=== PATIENT | male | born 1980 | race Hispanic/Latino ===

== ENCOUNTER 2021-02-26 08:58 | Emergency (ER) | payer OTHER ==
[2021-02-26 09:17] VITALS: BP 150/98
[2021-02-26] MEDS ORDERED: TETANUS,DIPHTHERIA TOXOID ADULT 0.5 ML INJ IM NR (09:21)
[2021-02-26] MEDS ORDERED: LIDOCAINE (1%) 10 MG/1 ML VIAL 20 ML MDV INFILTRATI NR (09:21)
[2021-02-26] MEDS ORDERED: ONDANSETRON 4 MG ODT TAB PO ONE (09:35)
[2021-02-26] MEDS ORDERED: HYDROcodone/Acetaminophen 7.5-325MG-15ML ORAL LIQD PO ONE (09:35)
--- NOTE | 2021-02-26 09:59 | XRay Report ---
XR hand 3+V LT INDICATION: INJURY. COMPARISON: No relevant prior imaging study available. FINDINGS: Best seen on the lateral view, there is an curvilinear density volar to the tuft of the distal phalan x of the ring finger. Surrounding soft tissue swelling is noted. No additional fractures are identified. No radiodense foreign bodies are identified. IMPRESSION: 1. Acute injury to the distal left ring finger, curvilinear density along the volar aspect of the dis scottie tuft of the distal phalanx is likely an avulsed fracture fragment, this is only seen well on the lateral view. Signer Name: Donald Dickerson MD Signed: 02/26/2021 9:55 AM Workstation Name: [id number]
[2021-02-26] MEDS ORDERED: ceFAZolin 1 GM VIAL IM NR (10:00)
[2021-02-26 10:22] LABS: Bilirubin,Urine NEG (Negative); Blood,Urine SM (Negative); Color,Urine Yellow (Yellow); Protein,Urine <15 mg/dL mg/dL (Negative); Urobilinogen,Urine < 2.0 mg/dL (<2.0)
[2021-02-26 10:28] LABS: Amphetamine Screen,Urine Negative; Benzodiazepines Screen,Urine Negative; Cannabinoid Screen,Urine Negative; Cocaine Screen,Urine Negative; Methadone Screen,Urine Negative; Opiate Screen,Urine Negative
--- NOTE | 2021-02-26 12:10 | Emergency Department Report ---
ED General Adult HPI - General Chief complaint: Multiple Trauma Stated complaint: EXTREMITY INJURY Time Seen by Provider: 02/26/21 09:13 Source: patient Mode of arrival: Ambulatory Limitations: No Limitations - History of Present Illness Initial comments: LEFT HAND INJURY , HAPPENED AT WORK FEW MINS AGO, CUT BY A MACHINE AT WORK -: minutes(s) Location: upper extremity Severity scale (0 -10): 7 Quality: aching Consistency: constant Improves with: none Worsens with: none Associated Symptoms: denies other symptoms - Related Data Allergies Allergy/AdvReac Type Severity Reaction Status Date / Time No Known Allergies Allergy Unverified 02/26/21 09:23 ED Review of Systems ROS: Stated complaint: EXTREMITY INJURY Other details as noted in HPI ED Past Medical Hx - Past Medical History Previous Medical History?: No ED Physical Exam - General Limitations: No Limitations General appearance: alert, in no apparent distress - Head Head exam: Present: atraumatic, normocephalic - Eye Eye exam: Present: normal appearance - ENT ENT exam: Present: mucous membranes moist - Neck Neck exam: Present: normal inspection - Respiratory Respiratory exam: Present: normal lung sounds bilaterally. Absent: respiratory distress - Cardiovascular Cardiovascular Exam: Present: regular rate, normal rhythm. Absent: systolic murmur, diastolic murmur, rubs, gallop - GI/Abdominal GI/Abdominal exam: Present: soft, normal bowel sounds - Rectal Rectal exam: Present: deferred - Extremities Exam Extremities exam: Present: normal inspection - Expanded Upper Extremity Exam Left Hand L/R Front: 1 - Positive: laceration 2 - Positive: laceration - Back Exam Back exam: Present: normal inspection - Neurological Exam Neurological exam: Present: alert, oriented X3 - Psychiatric Psychiatric exam: Present: normal affect, normal mood - Skin Skin exam: Present: warm, dry, intact, normal color. Absent: rash ED Course Vital Signs 02/26/21 09:15 Temperature 98 F Pulse Rate 89 Respiratory 16 Rate Blood Pressure 150/98 [Right] O2 Sat by Pulse 98 Oximetry - Reevaluation(s) Reevaluation #1: 02/26/21 12:09 TETANUS ABX GIVEN X RAY SHWOED SMALL AVULSION, REPRIARED BY ABIOLA Critical care attestation.: If time is entered above; I have spent that time in minutes in the direct care of this critically ill patient, excluding procedure time. ED Disposition Clinical Impression: Injury of left hand, Laceration of left index finger, Avulsion fracture of dis scottie phalanx of finger Disposition: HOME / SELF CARE / HOMELESS Is pt being admited?: No Does the pt Need Aspirin: No Condition: Stable Instructions: Laceration Care, Adult Referrals: PRIMARY CARE, [Primary Care Provider] - 3-5 Days
== END 2021-02-26 12:30 | disposition home or self-care (01) ==
LOC: ED 08:58
DX: S69.92XA Unspecified injury of left wrist, hand and finger(s), initial encounter (principal); S61.211A Laceration without foreign body of left index finger without damage to nail, initial encounter; S62.639A Displaced fracture of distal phalanx of unspecified finger, initial encounter for closed fracture; Z79.899 Other long term (current) drug therapy; W31.9XXA Contact with unspecified machinery, initial encounter; Y93.89 Activity, other specified; Y92.89 Other specified places as the place of occurrence of the external cause; Y99.8 Other external cause status
CPT/HCPCS: 12001; 73130; 80307; 81001; 90714; 99283; J0690; J3490; Q0162